=== PATIENT | female | born 1980 | race Caucasian/White ===

== ENCOUNTER 2024-11-15 15:11 | Outpatient (CLI) | payer OTHER, SELFPAY ==
--- NOTE | ~2024-11-15 | XR_ITS ---
Cervical Spine: AP, lateral, open-mouth views, with neutral, flexion, extension positioning Clinical History: Pain Findings: The normal lordotic curve is maintained. No instability on flexion or extension. The verteb ral bodies and posterior elements appear intact. The intervertebral disc spaces are well maintained. Pre-vertebral soft tissues are unremarkable. Impression: No significant abnormality is seen. Reviewed, dictated and finalized at location . Impression: No significant abnormality is seen.
--- NOTE | ~2024-11-15 | XR_ITS ---
HISTORY: R shoulder pain with limited range of motion COMPARISON: None TECHNIQUE: 4 views of the right shoulder were performed FINDINGS: No acute fracture. The glenohumeral and acromioclavicular joint space is maintained. The acromiohumeral joint space is within the lower limits of normal, for which rotator cuff pathology is suspected. The visualized portion of the adjacent right lung is clear. The humeral head is well seated within the glenoid fossa. IMPRESSION: Acromiohumeral joint space within the lower limits of normal for which rotator cuff path ology is suspected, and for which MRI examination is recommended. No acute fracture or anterior dislocation. Reviewed, dictated and finalized at location A. IMPRESSION: Acromiohumeral joint space within the lower limits of normal for w hich rotator cuff pathology is suspected, and for which MRI examination is rajwinder mmended. No acute fracture or anterior dislocation.
== END 2024-11-15 15:12 | disposition home or self-care (01) ==
LOC: GOSHIMG 15:12
PROVIDERS: PCP Chiropractor; Visit Provider Chiropractor
DX: M25.511 Pain in right shoulder (principal)
CPT/HCPCS: 72050; 73030

== ENCOUNTER 2024-11-28 14:58 | Outpatient (CLI) | payer OTHER, SELFPAY ==
--- NOTE | ~2024-11-28 | MR_ITS ---
MRI of the right shoulder Technique: Axial proton-density fat-sat images, coronal proton density fat-sat and T2 fat-sat images, and sagittal T1-weighted and T2 fat-sat images were acquired. Clinical History: Pain Findings: There is mild AC joint degenerative change, mildly productive change of the distal clavicle . Coracoclavicular, coracoacromial, and coracohumeral ligaments are intact. Supraspinatus and infraspinatus tendons are intact, without partial or full-thickness tear. Subscapul devaughn tendon is intact. There is mild rotator cuff tendinosis. Tendon of long head of the biceps is in tact. No labral tear evident. Inferior glenohumeral ligament is intact. No degenerative change or effusion of the glenohumeral join t. No fluid distention of the subacromial/subdeltoid bursa. No muscle atrophy or edema. Impression: Mild AC joint degenerative change. Mild rotator cuff tendinosis. Reviewed, dictated and finalized at location . Impression: Mild AC joint degenerative change. Mild rotator cuff tendinosis.
== END 2024-11-28 14:59 | disposition home or self-care (01) ==
LOC: GOSHIMG 14:58
PROVIDERS: PCP Internal Medicine; Visit Provider Chiropractor
DX: M19.011 Primary osteoarthritis, right shoulder (principal); M75.81 Other shoulder lesions, right shoulder
CPT/HCPCS: 73221